=== PATIENT | female | born 1985 | race Caucasian/White ===

== ENCOUNTER 2017-06-19 07:45 | Emergency (ER) | payer MEDICAID ==
[~2017-06-19] VITALS: Ht 160 cm; Wt 55.0 kg
[2017-06-19 07:54] VITALS: BP 114/64; PULSE 71; RESP 16; TEMP 98.9; O2SAT 99
--- NOTE | 2017-06-19 08:30 | PD ---
HPI Chief Complaint: Injury Time Seen by Provider: 08:11 Travel History International Travel<30 days: No Contact w/Intl Traveler<30days: No Traveled to known affect area: No History of Present Illness HPI 31-year-old female presents to the emergency room for evaluation of left upper back pain after injuring it just prior to arrival. Patient states her left shoulder has been irritating her for the past 2 weeks but today while lifting a heavy box overhead, she felt a pop in her back and had immediate, excruciating pain. Patient had to set the box down right away and has not been able to use her left upper extremity since then. Pain is localized to the left upper back just lateral to the midline spine. Worse with any range of motion of the arm. She has not taken anything for symptoms. Denies paresthesias. PFSH Past Medical History Depression: Yes (depression) Cancer: No Cardiovascular Problems: No Diabetes: No Diminished Hearing: No Gastrointestinal Disorders: Yes (IBS) GERD: No Glaucoma: No Genitourinary: No Hepatitis: No Hiatal Hernia: No Hypertension: No Kidney Stones: No Musculoskeletal: Yes (2 FRACTURE RIBS AGE 15) Neurologic: Yes Reproductive: Yes Respiratory: No Migraines: Yes Renal Failure: No Seizures: Yes (Hasn't had one in 3-4 years) Thyroid Disease: No Ulcer: No ?: Not : 2 Para: 2 Ovarian Cysts: Yes (X 5) Tubal Ligation: Yes Past Surgical History Abdominal Surgery: Yes (APPY) Appendectomy: Yes Cardiac Surgery: No Cholecystectomy: No Ear Surgery: No Endocrine Surgery: No Eye Surgery: No Genitourinary Surgery: No Gynecologic Surgery: Yes ( OVARIAN CYST) Oral Surgery: No Pacemaker: No Thoracic Surgery: No Other Surgery: Yes (tubal ligation) Social History Alcohol Use: Yes (SOCIALLY) Tobacco Use: No (QUIT 1 yr 2 months ago) Substance Use: No Allergies-Medications (Allergen,Severity, Reaction): Coded Allergies: promethazine (Unverified Allergy, Severe, Anaphylaxis, 06/19/17) shellfish derived (Verified Allergy, Intermediate, edema, 06/19/17) Reported Meds & Prescriptions Reported Meds & Active Scripts Active Review of Systems Except as stated in HPI: all other systems reviewed are Neg Physical Exam Narrative GENERAL: Well-nourished, well-developed female in no acute distress. Afebrile. Ambulatory. SKIN: Focused skin assessment warm/dry. No erythema or ecchymosis noted. HEAD: Normocephalic. EYES: No scleral icterus. No injection or drainage. NECK: Supple, trachea midline. No JVD or lymphadenopathy. CARDIOVASCULAR: Regular rate and rhythm without murmurs, gallops, or rubs. RESPIRATORY: Breath sounds equal bilaterally. No accessory muscle use. MUSCULOSKELETAL: No cyanosis, or edema. There is extreme tenderness to palpation of the left trapezius muscle where it inserts at the superior thoracic spine. There is a very slight indentation. 2+ radial pulse in the left arm. Radial, ulnar, and median nerves intact. Full range motion of all joints. Limited range of motion of the left shoulder secondary to pain in the trapezius muscle. Data Data Last Documented VS Vital Signs Date Time Temp Pulse Resp B/P (MAP) Pulse Ox O2 Delivery O2 Flow Rate FiO2 06/19/17 07:54 98.9 71 16 114/64 (81) 99 Orders Orders Ed Discharge Order (06/19/17 08:20) ^ Sling (06/19/17 08:20) MDM Medical Decision Making Medical Screen Exam Complete: Yes Emergency Medical Condition: Yes Medical Record Reviewed: Yes Differential Diagnosis Sprain, strain, contusion, fracture, tear Narrative Course 31-year-old female presents to the emergency room for evaluation of left upper back pain after injury earlier today. Patient has had pain in that general area for the past 2 weeks but it worsened significantly while lifting a heavy box overhead earlier today. She heard a pop and immediately lost strength in her left upper extremity. Left upper extremity is neurovascularly intact with 2 + radial pulse. No bony tenderness to palpation. All joints have range of motion. Patient is resistant to move left upper extremity because of the trapezius muscle injury. There is a slight indentation at the insertion of the trapezius muscle at the thoracic spine and extreme tenderness to palpation over the indentation. This is muscle tear. There is no functional loss. Patient will be treated conservatively with splint, Motrin, and rest. Told to follow up with her primary care physician for outpatient physical therapy or return for worsening symptoms. She understands and agrees to plan. Diagnosis Primary Impression: Strain of left trapezius muscle Qualified Codes: S46.812A - Strain of other muscles, fascia and tendons at shoulder and upper arm level, left arm, initial encounter Referrals: Primary Care Physician Additional Instructions: Rest and drink plenty of fluids. Use sling for the next 24-48 hours. Do not use continuously to prevent frozen shoulder. Maintain range of motion. Take ibuprofen with food as directed, as needed for pain. Apply ice to the affected area for 20 minutes at a time, as needed for pain and swelling. Follow-up with a primary care physician for physical therapy. Return to the emergency room for worsening symptoms. Disposition: 01 DISCHARGE HOME Condition: Stable Mague Muñoz Jun 19, 2017 08:30
== END 2017-06-19 08:50 | disposition home or self-care (01) ==
LOC: NEPD 07:45
DX: S46.812A Strain of other muscles, fascia and tendons at shoulder and upper arm level, left arm, initial encounter (principal); X50.0XXA Overexertion from strenuous movement or load, initial encounter
CPT/HCPCS: 99282

== ENCOUNTER 2017-08-25 09:47 | Emergency (ER) | payer MEDICAID ==
[2017-08-25 09:52] VITALS: BP 111/77; PULSE 72; RESP 17; TEMP 98.6; O2SAT 100
--- NOTE | 2017-08-25 10:28 | PD ---
HPI Chief Complaint: Numbness/Tingling Time Seen by Provider: 09:58 Travel History International Travel<30 days: No Contact w/Intl Traveler<30days: No Traveled to known affect area: No History of Present Illness HPI The patient is a 31-year-old female who presents emergency department for numbness, tingling, and left lower extremity weakness of one and a half weeks duration. The patient states she noticed approximately one and a half weeks ago she has some numbness over the lateral left leg inferior to the knee extending down to the toes. The patient states occasionally she is restless at sleep or rest because the numbness or tingling, feels like her foot is "asleep ". The patient denies any trauma to lateral aspect of the left leg. She now complains of mild weakness with plantar flexion and flexion of the toes, denies any weakness of the knees or hips. She denies any known history of herniated disc, sciatica, MS, or trauma to the left lower extremity. She denies any weakness or numbness affecting the upper extremities are the right lower extremity. She denies any history of optic neuritis or visual acuity changes. Symptoms are moderate, extending for a week and a half, and there are no current alleviating factors. PFSH Past Medical History Depression: Yes (depression) Cancer: No Cardiovascular Problems: No Diabetes: No Diminished Hearing: No Gastrointestinal Disorders: Yes (IBS) GERD: No Glaucoma: No Genitourinary: No Hepatitis: No Hiatal Hernia: No Hypertension: No Kidney Stones: No Musculoskeletal: Yes (2 FRACTURE RIBS AGE 15) Neurologic: Yes Reproductive: Yes Respiratory: No Migraines: Yes Renal Failure: No Seizures: Yes (Hasn't had one in 3-4 years) Thyroid Disease: No Ulcer: No Tetanus Vaccination: Unknown Influenza Vaccination: No ?: Not LMP: 08/12/17 : 2 Para: 2 Ovarian Cysts: Yes (X 5) Tubal Ligation: Yes Past Surgical History Abdominal Surgery: Yes (APPY) Appendectomy: Yes Cardiac Surgery: No Cholecystectomy: No Ear Surgery: No Endocrine Surgery: No Eye Surgery: No Genitourinary Surgery: No Gynecologic Surgery: Yes ( OVARIAN CYST) Neurologic Surgery: No Oral Surgery: No Pacemaker: No Thoracic Surgery: No Other Surgery: Yes (tubal ligation) Social History Alcohol Use: Yes (SOCIALLY) Tobacco Use: No Substance Use: No Allergies-Medications (Allergen,Severity, Reaction): Coded Allergies: promethazine (Unverified Allergy, Severe, Anaphylaxis, 06/19/17) shellfish derived (Verified Allergy, Intermediate, edema, 06/19/17) Reported Meds & Prescriptions Reported Meds & Active Scripts Active Review of Systems Except as stated in HPI: all other systems reviewed are Neg Eyes: No: Diploplia, Blurred Vision, Pain, Visual changes HENT: No: Headaches, Lightheadedness Genitourinary: No: Dysuria, Incontinence Musculoskeletal: Positive: Weakness Neurologic: Positive: Paresthesia, Sensory Disturbance Physical Exam Narrative GENERAL: Awake, alert, pleasant 31-year-old female who appears her stated age and is in no acute respiratory distress. SKIN: Focused skin assessment warm/dry. HEAD: Atraumatic. Normocephalic. EYES: Pupils equal and round. No scleral icterus. No injection or drainage. ENT: No nasal bleeding or discharge. Mucous membranes pink and moist. NECK: Trachea midline. No JVD. MUSCULOSKELETAL: No obvious deformities. No clubbing. No cyanosis. No edema. No atrophy of the left lower extremity or left foot noted. Positive dorsalis pedal pulses and posterior tibialis pulses bilaterally. Flexion the hips bilaterals 5 out of 5. Extension of the knees bilateral is 5 out of 5. Plantar flexion on the left is diminished compared to the right at 4+/5. Abduction and adduction is 5/5 bilaterally. NEUROLOGICAL: Awake and alert. No obvious cranial nerve deficits. Motor grossly within normal limits. Normal speech. Sensation is diminished over the lateral aspect of the left leg and over the anterior and lateral aspect the left foot. Sensation is intact of the anterior, medial, and posterior aspect the left tibia/fibula as well as over the left great toe. Ankle DTRs are 2+ and symmetric. Knee DTRs are 3+ and symmetric. PSYCHIATRIC: Appropriate mood and affect; insight and judgment normal. Data Data Last Documented VS Vital Signs Date Time Temp Pulse Resp B/P (MAP) Pulse Ox O2 Delivery O2 Flow Rate FiO2 08/25/17 12:36 99.0 65 16 100/60 (73) 99 Room Air Orders Orders Complete Blood Count With Diff (08/25/17 10:22) Basic Metabolic Panel (Bmp) (08/25/17 10:22) Mri L Spine W&W/O Contrast (08/25/17 ) Lorazepam Inj (Ativan Inj) (08/25/17 11:15) Gadodiamide Pf Inj (Omniscan Pf Inj) (08/25/17 12:07) Labs Laboratory Tests Test 08/25/17 10:28 White Blood Count 7.5 TH/MM3 Red Blood Count 4.22 MIL/MM3 Hemoglobin 12.8 GM/DL Hematocrit 38.4 % Mean Corpuscular Volume 90.9 FL Mean Corpuscular Hemoglobin 30.3 PG Mean Corpuscular Hemoglobin Concent 33.3 % Red Cell Distribution Width 11.9 % Platelet Count 209 TH/MM3 Mean Platelet Volume 8.3 FL Neutrophils (%) (Auto) 64.5 % Lymphocytes (%) (Auto) 25.0 % Monocytes (%) (Auto) 7.3 % Eosinophils (%) (Auto) 2.7 % Basophils (%) (Auto) 0.5 % Neutrophils # (Auto) 4.8 TH/MM3 Lymphocytes # (Auto) 1.9 TH/MM3 Monocytes # (Auto) 0.6 TH/MM3 Eosinophils # (Auto) 0.2 TH/MM3 Basophils # (Auto) 0.0 TH/MM3 CBC Comment DIFF FINAL Differential Comment Blood Urea Nitrogen 10 MG/DL Creatinine 0.64 MG/DL Random Glucose 83 MG/DL Calcium Level 8.7 MG/DL Sodium Level 137 MEQ/L Potassium Level 3.7 MEQ/L Chloride Level 106 MEQ/L Carbon Dioxide Level 24.5 MEQ/L Anion Gap 7 MEQ/L Estimat Glomerular Filtration Rate 109 ML/MIN MDM Medical Decision Making Medical Screen Exam Complete: Yes Emergency Medical Condition: Yes Medical Record Reviewed: Yes Interpretation(s) Laboratory Tests Test 08/25/17 10:28 White Blood Count 7.5 TH/MM3 Red Blood Count 4.22 MIL/MM3 Hemoglobin 12.8 GM/DL Hematocrit 38.4 % Mean Corpuscular Volume 90.9 FL Mean Corpuscular Hemoglobin 30.3 PG Mean Corpuscular Hemoglobin Concent 33.3 % Red Cell Distribution Width 11.9 % Platelet Count 209 TH/MM3 Mean Platelet Volume 8.3 FL Neutrophils (%) (Auto) 64.5 % Lymphocytes (%) (Auto) 25.0 % Monocytes (%) (Auto) 7.3 % Eosinophils (%) (Auto) 2.7 % Basophils (%) (Auto) 0.5 % Neutrophils # (Auto) 4.8 TH/MM3 Lymphocytes # (Auto) 1.9 TH/MM3 Monocytes # (Auto) 0.6 TH/MM3 Eosinophils # (Auto) 0.2 TH/MM3 Basophils # (Auto) 0.0 TH/MM3 CBC Comment DIFF FINAL Differential Comment Blood Urea Nitrogen 10 MG/DL Creatinine 0.64 MG/DL Random Glucose 83 MG/DL Calcium Level 8.7 MG/DL Sodium Level 137 MEQ/L Potassium Level 3.7 MEQ/L Chloride Level 106 MEQ/L Carbon Dioxide Level 24.5 MEQ/L Anion Gap 7 MEQ/L Estimat Glomerular Filtration Rate 109 ML/MIN Last Impressions Lumbar Spine MRI 08/25/17 0000 Signed Impressions: Service Date/Time: July 11:45 - CONCLUSION: Normal examination. Vinay Grissom MD Differential Diagnosis Differential diagnosis includes MS, peripheral neuropathy, neuropathy, herniated disc, spinal stenosis, spinal tumor. Narrative Course IV was established, labs are drawn and sent, and the patient was placed on cardiac telemetry monitoring and continuous pulse oximetry monitoring. MRI lumbar spine with and without contrast was ordered to evaluate for possible small bowel tumor with subsequent neuropathy of the L5-S1 dermatome on the left. Laboratory evaluation was unremarkable. MRI lumbar spine was unremarkable. The patient appears to have peripheral neuropathy with weakness, is advised to follow-up with [facility]. She will be placed on a Medrol Dosepak. She is advised to return if symptoms worsen or progress. Diagnosis Primary Impression: Peripheral neuropathy Qualified Codes: G62.9 - Polyneuropathy, unspecified Patient Instructions: General Instructions Additional Instructions: Please provide the patient a copy of her MRI results and lab results at discharge. Medrol Dosepak as directed. Follow-up with orthopedics and/or neurology if symptoms persist. Med/Other Pt SpecificInfo: Prescription(s) given Scripts Methylprednisolone Dosepak (Medrol Dosepak) 4 Mg Dspk 4 MG PO DIRECTED, #1 DSPK 0 Refills Per Pharmacist direction Prov: Emmanuel Stevens MD 08/25/17 Disposition: 01 DISCHARGE HOME Condition: Stable Emmanuel Stevens MD Aug 25, 2017 10:28
[2017-08-25 10:32] LABS: AUTOMATED NEUTROPHIL # 4.8 TH/MM3 (1.8-7.7); BASOPHIL % 0.5 % (0.0-2.0); EOSINOPHIL # 0.2 TH/MM3 (0-0.4); EOSINOPHIL % 2.7 % (0.0-4.0); HEMATOCRIT 38.4 % (35.0-46.0); HEMOGLOBIN 12.8 GM/DL (11.6-15.3); LYMPHOCYTE # 1.9 TH/MM3 (1.0-4.8); MEAN CELL VOLUME 90.9 FL (80.0-100.0); MEAN CORPUSCULAR HEMOGLOBIN 30.3 PG (27.0-34.0); MEAN CORPUSCULAR HGB CONC 33.3 % (32.0-36.0); MEAN PLATELET VOLUME 8.3 FL (7.0-11.0); MONO % 7.3 % (0.0-8.0); MONOCYTE # 0.6 TH/MM3 (0-0.9); NEUT % 64.5 % (16.0-70.0); PLATELET COUNT 209 TH/MM3 (150-450); RED BLOOD COUNT 4.22 MIL/MM3 (4.00-5.30); RED CELL DISTRIBUTION WIDTH 11.9 % (11.6-17.2); WHITE BLOOD COUNT 7.5 TH/MM3 (4.0-11.0)
[2017-08-25 10:35] VITALS: BP 106/60; PULSE 66; RESP 16; O2SAT 99
[2017-08-25 10:44] LABS: CALCIUM 8.7 MG/DL (8.5-10.1)
[2017-08-25 10:45] LABS: BICARBONATE 24.5 MEQ/L (21.0-32.0)
[2017-08-25 10:48] LABS: CREATININE 0.64 MG/DL (0.50-1.00)
[2017-08-25 11:05] VITALS: BP 91/58; PULSE 64; RESP 17; O2SAT 99
[2017-08-25] MEDS ORDERED: LORazepam 2 MG/ML VIAL IV PUSH PRN (11:15)
[2017-08-25] MEDS ORDERED: GADODIAMIDE PF 287 MG/ML 5 ML VIAL (for RAD MRI) IVCONTRAST ONE (12:07)
--- NOTE | 2017-08-25 12:27 | RADRPT ---
EXAM DATE/TIME: 08/25/2017 11:45 [facility] COMPARISON: No previous studies available for comparison. INDICATIONS : Myelopathy. Numbness in left leg with plantar flexion. CONTRAST: 12 cc Omniscan (gadodiamide) IV MEDICAL HISTORY : None. SURGICAL HISTORY : Tubal ligation. Appendectomy. Uterine ablation. ENCOUNTER: Initial ACUITY: 2 day PAIN SCORE: 0/10 LOCATION: Back. TECHNIQUE: Multiplanar multisequence MRI of the lumbar spine was performed with and without contrast. FINDINGS: The most caudal appearing lumbar vertebra is numbered as L5. VERTEBRAE: Homogeneous signal. Normal alignment. CONUS: Normal level and configuration. POST CONTRAST: No abnormal areas of contrast enhancement are seen. T12-L1: The thecal sac has a normal diameter. No evidence of disc bulge or protrusion. The neural foramina are patent bilaterally. L1-L2: The thecal sac has a normal diameter. No evidence of disc bulge or protrusion. The neural foramina are patent bilaterally. L2-L3: The thecal sac has a normal diameter. No evidence of disc bulge or protrusion. The neural foramina are patent bilaterally. L3-L4: The thecal sac has a normal diameter. No evidence of disc bulge or protrusion. The neural foramina are patent bilaterally. L4-L5: The thecal sac has a normal diameter. No evidence of disc bulge or protrusion. The neural foramina are patent bilaterally. L5-S1: The thecal sac has a normal diameter. No evidence of disc bulge or protrusion. The neural foramina are patent bilaterally. CONCLUSION: Normal examination. Vinay Grissom MD on August 25, 2017 at 12:25 Board Certified Radiologist. This report was verified electronically.
[2017-08-25 12:36] VITALS: BP 100/60; PULSE 65; RESP 16; TEMP 99; O2SAT 99
[2017-08-25] MEDS ORDERED: MEDR4PAK PO (12:49)
== END 2017-08-25 12:58 | disposition home or self-care (01) ==
LOC: PHED 09:47
DX: G62.9 Polyneuropathy, unspecified (principal); R53.1 Weakness
CPT/HCPCS: 72158; 80048; 85025; 99285; A9579